=== PATIENT | male | born 1970 | race Two or more races ===

== ENCOUNTER 2019-03-04 22:12 | Emergency (ER) | payer SELFPAY ==
[2019-03-04] MEDS ORDERED: PREDNISONE 20 MG TABLET PO ONE (22:43)
[2019-03-04] MEDS ORDERED: IPRATROPIUM/ALBUTEROL 0.5-2.5 MG/3 ML AMPUL NEB ONE ×2 (22:43→23:09)
[2019-03-04] MEDS ORDERED: ALBUTEROL SULFATE 0.083% NEB 2.5 MG/3 ML AMPUL NEB SCH (22:58)
[2019-03-04 23:10] LABS: ABSOLUTE EOSINOPHILS # (AUTO) 0.1 10^3/uL (0.0-0.6); ABSOLUTE LYMPHOCYTES (AUTO) 1.5 10^3/uL (0.5-4.7); ABSOLUTE MONOCYTES (AUTO) 0.6 10^3/uL (0.1-1.4); ABSOLUTE NEUT (AUTO) 7.4 10^3/uL (1.7-8.2); BASOPHILS % (AUTO) 0.5 % (0-2); EOSINOPHILS % (AUTO) 0.6 % (0-6); HEMATOCRIT 49.3 % (37.9-51.0); HEMOGLOBIN 16.8 g/dL (13.5-17.0); LYMPHOCYTES % (AUTO) 15.6 % (13-45); MEAN CORPUSCULAR HEMOGLOBIN 29.3 pg (27.0-33.4); MEAN CORPUSCULAR HGB CONC 34.1 g/dL (32.0-36.0); MEAN CORPUSCULAR VOLUME 86 fl (80-97); MONOCYTES % (AUTO) 6.1 % (3-13); PLATELET COUNT 194 10^3/uL (150-450); RED BLOOD COUNT 5.74 10^6/uL (4.35-5.55); RED CELL DISTRIBUTION WIDTH 14.2 % (11.5-14.0); SEGMENTED NEUTROPHILS % (AUTO) 77.2 % (42-78); TOTAL CELLS COUNTED % (AUTO) 100 %; WHITE BLOOD COUNT 9.5 10^3/uL (4.0-10.5)
--- NOTE | 2019-03-04 23:11 | ER Document Report ---
ED General - General Chief Complaint: Shortness Of Breath Stated Complaint: SHORTNESS OF BREATH,FEVER Time Seen by Provider: 03/04/19 23:00 Notes: Patient is a 48-year-old male that comes emergency department for chief complaint of worsening cough, congestion, wheezing, and shortness of breath for the past 4 days. He states that he started feeling feverish and chills earlier today as well. He states he is a former smoker and has a history of asthma. He states he felt nauseated earlier but he denies vomiting. He denies abdominal pain, chest pain. He is visiting here, he does have an extensive history including CAD, [place] with stent, pacemaker, type 2 diabetes, hypertension, hyperlipidemia. 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 He does also report multiple sick contacts at home. He has not had the influenza vaccine. - Related Data Allergies/Adverse Reactions: No Known Allergies Allergy (Unverified 03/05/19 02:45) Past Medical History - General Information source: Patient - Social History Smoking Status: Never Smoker Frequency of alcohol use: None Drug Abuse: None Lives with: Family Family History: Reviewed & Not Pertinent - Past Medical History Cardiac Medical History: Reports: Hx Coronary Artery Disease, Hx Heart Attack, Hx Hypercholesterolemia, Hx Hypertension Endocrine Medical History: Reports: Hx Diabetes Mellitus Type 2 Past Surgical History: Reports: Hx Cardiac Catheterization - Immunizations Hx Diphtheria, Pertussis, Tetanus Vaccination: Yes Review of Systems - Review of Systems Constitutional: See HPI EENT: No symptoms reported Cardiovascular: See HPI Respiratory: See HPI Gastrointestinal: No symptoms reported Genitourinary: No symptoms reported Male Genitourinary: No symptoms reported Musculoskeletal: No symptoms reported Skin: No symptoms reported Hematologic/Lymphatic: No symptoms reported Neurological/Psychological: No symptoms reported Physical Exam - Vital signs Vitals: Pulse Ox 96 03/04/19 22:42 - Notes Notes: GENERAL: Alert, interacts well. HEAD: Normocephalic, atraumatic. EYES: Pupils equal, round, and reactive to light. Extraocular movements intact. ENT: Oral mucosa moist, tongue midline. Oropharynx unremarkable. Airway patent. NECK: Full range of motion. Supple. Trachea midline. LUNGS: Tachypnea, expiratory wheezes, scattered coarse breath sounds HEART: Tachycardia, normal rhythm ABDOMEN: Soft, non-tender. Non-distended. EXTREMITIES: Moves all 4 extremities spontaneously. No edema, normal radial and dorsalis pedis pulses bilaterally. No cyanosis. BACK: no cervical, thoracic, lumbar midline tenderness. No saddle anesthesia, normal distal neurovascular exam. Moves all extremities in full range of motion. NEUROLOGICAL: Alert and oriented x3. Normal speech. Cranial nerves II through XII grossly intact. PSYCH: Normal affect, normal mood. SKIN: Warm, dry, normal turgor. No rashes or lesions noted. Course - Re-evaluation Re-evalutation: Patient with expiratory wheezes and scattered coarse breath sounds with tachypnea on my initial evaluation. Given duo nebs. He has been given steroids. He denies chest pain. He will be closely reevaluated. CBC unremarkable, chemistry unremarkable. BNP is elevated in the 1000 is without comparison. Troponin indeterminate. Chest x-ray showing bilateral infiltrates and pleural effusions. Influenza test is negative. Discussed with patient. Because of his tachycardia, intermittent hypoxia requiring oxygen (at one point he dropped down to 89% on room air and I placed him on 3 L nasal cannula), abnormal chest x-ray, concerning extensive history, I recommended admission. I am concerned the patient has either bacterial or viral pneumonia and secondary heart failure component. Patient refuses. Patient states that he absolutely will not be admitted to the hospital. I attempted to change his mind, explained that he has the possibility that he could become extremely ill and even if he is discharged. Patient states understanding but he maintains that he will be discharged and he will follow-up elsewhere or return if he worsens. His is supportive with this. Both are completely coherent and appear to be capable of making this decision. I tried to change his mind when performed but I could not. I did discuss with Dr. Nbole. Patient also be provided with prednisone and antibiotics and he was urged to return at any time. Patient does state understanding. Discharged AGAINST MEDICAL ADVICE. - Vital Signs Vital signs: Temp Pulse Resp BP Pulse Ox 99.5 F 33 H 106/79 100 03/05/19 02:00 03/05/19 02:30 03/05/19 02:30 03/05/19 02:30 - Laboratory Result Diagrams: 03/04/19 22:37 03/04/19 22:37 Laboratory results interpreted by me: 03/04/19 03/04/19 03/04/19 22:37 22:37 22:37 RBC 5.74 H RDW 14.2 H Glucose 170 H Total Bilirubin 1.7 H NT-Pro-B Natriuret Pep 1740 H - EKG Interpretation by Me Additional EKG results interpreted by me: EKG sinus sinus tachycardia at a rate of 115, left axis deviation, QTC 465. Nonspecific IVCD with LAD. Questionable ST elevations in the anterior leads, EKG reviewed by Dr. Noble. Discharge - Discharge Clinical Impression: Shortness of breath, Wheezing, Hypoxia, Pulmonary vascular congestion Disposition: AGAINST MEDICAL ADVICE Additional Instructions: Your evaluation and respiratory status is concerning, I am concerned that you have a form of pneumonia along with fluid on your lungs at this time. In addition to this your vital signs are concerning. You have signed out AGAINST MEDICAL ADVICE at this time, there is a possibility that he will worsen and become extremely ill or even . Please either follow-up immediately with another hospital or return at anytime for additional care. Prescriptions: Prednisone [Deltasone 20 mg Tablet] 3 tab PO DAILY 5 Days #15 tablet Doxycycline Hyclate 100 mg PO BID #14 capsule
[2019-03-04 23:17] LABS: ALBUMIN 4.5 g/dL (3.5-5.0); ALKALINE PHOSPHATASE 86 U/L (38-126); ANION GAP 14 (5-19); ASPARTATE AMINO TRANSFERASE 50 U/L (17-59); BILIRUBIN,DIRECT 0.3 mg/dL (0.0-0.4); BILIRUBIN,TOTAL 1.7 mg/dL (0.2-1.3); BLOOD UREA NITROGEN 20 mg/dL (7-20); CALCIUM 9.6 mg/dL (8.4-10.2); CARBON DIOXIDE 23 mmol/L (22-30); CHLORIDE 103 mmol/L (98-107); CREATINE KINASE 105 U/L (55-170); GLUCOSE 170 mg/dL (75-110); POTASSIUM 4.4 mmol/L (3.6-5.0); TOTAL PROTEIN 7.8 g/dL (6.3-8.2)
--- NOTE | 2019-03-04 23:23 | RADIOLOGY REPORT (SQ) ---
EXAM DESCRIPTION: CLINICAL HISTORY: 48 years Male wheezing, SOB COMPARISON: None. FINDINGS: Mild cardiac enlargement with pacemaker in place. Prominence of the central pulmonary vasculature. Bilateral infiltrates and pleural effusions which may reflect CHF. IMPRESSION: Bilateral infiltrates and pleural effusions which suggest pulmonary edema and may reflect congestive failure
[2019-03-04] MEDS: NORMAL SALINE 1000 ML 1,000 ML IV ONE (23:24)
[2019-03-04 23:29] LABS: CREATINE KINASE MB 1.52 ng/mL (<4.55); TROPONIN I 0.033 ng/mL
[2019-03-05 00:51] LABS: A TYPE INFLUENZA AG NEGATIVE (NEGATIVE); B INFLUENZA AG NEGATIVE (NEGATIVE)
[2019-03-05] MEDS: NORMAL SALINE 1000 ML 1,000 ML IV ONE (01:33)
[2019-03-05] MEDS ORDERED: CEFTRIAXONE INJ 1000 MG VIAL IV ONE (01:48)
[2019-03-05] MEDS ORDERED: DOXYCYCLINE HYCLATE 100 MG TABLET PO ONE (01:48)
[2019-03-05] MEDS ORDERED: ALBUTEROL SULFATE HFA (90 MCG/PUFF) 8 GM MDI (1 MDI/ER DISP) IH ONE (01:48)
[2019-03-05 03:02] VITALS: BP 106/79
--- NOTE | 2019-03-05 13:49 | EKG REPORT ---
SEVERITY:- ABNORMAL ECG - SINUS TACHYCARDIA LEFT ATRIAL ABNORMALITY NONSPECIFIC IVCD WITH LAD : Confirmed by: Susan Chadwick MD 05-Mar-2019 13:48:13
== END 2019-03-05 02:53 | disposition left against medical advice (07) ==
LOC: ER 22:12
DX: J45.909 Unspecified asthma, uncomplicated (principal); J90 Pleural effusion, not elsewhere classified; R09.02 Hypoxemia; R05 Cough; R09.89 Other specified symptoms and signs involving the circulatory and respiratory systems; R11.0 Nausea; R06.02 Shortness of breath; R00.0 Tachycardia, unspecified; I25.10 Atherosclerotic heart disease of native coronary artery without angina pectoris; I10 Essential (primary) hypertension; I25.2 Old myocardial infarction; Z95.810 Presence of automatic (implantable) cardiac defibrillator; Z53.20 Procedure and treatment not carried out because of patient's decision for unspecified reasons
CPT/HCPCS: 93005; 94640 ×2; 99284; 96365; 36415; 87040; 82553; 82550; 85025; 80053; 84484; 87804; 83880; 71046; 93010; J7512; J0696; J3490; J7620; J7030